=== PATIENT | male | born 1945 | race Caucasian/White ===

== ENCOUNTER 2016-08-13 08:29 | Emergency (ER) | payer MEDICARE, MEDICAID ==
[~2016-08-13] VITALS: Ht 185.4 cm; Wt 117.9 kg
[~2016-08-13 08:29] MED LIST: AMOX-263 PO; ASPI-264 PO; ATOR40TA52 PO; CAR125T PO; CLOP75TA28 PO; DOC100C PO; DOCU100T15 PO; DONETAB5 PO; FURO40TA PO; INSU70IN9 SC; INSUINJ IJ; ISOS30TA4 PO; KLOR CON PO; LINA5TAB PO; LISI10TA6 PO; NITR0.4S31 SL; PANTOPRAZOLE PO; TRAM50TA2 PO; [UNRECOGNIZED DRUG - CODE] PO
[2016-08-13 09:46] LABS: Basophils # (auto) 0 uL; Basophils % (auto) 0.4 % (0.0-2.0); CONDITION Y; Eosinophils # (auto) 0.1 uL; Eosinophils % (auto) 1.6 % (0.0-7.0); Hematocrit 40.6 % (41.0-53.0); Hemoglobin 14.4 g/dL (13.5-17.5); Lymphocytes # (auto) 0.9 uL; Lymphocytes % (auto) 14.3 % (10.0-50.0); Mean Corpuscular Hemoglobin 33.2 pg (28.0-32.0); Mean Corpuscular Hgb Conc. 35.4 g/dL (32.0-36.0); Mean Corpuscular Volume 93.8 fL (80.0-100.0); Mean Platelet Volume 7.4 fL (7.4-10.4); Monocytes # (auto) 0.4 uL; Monocytes % (auto) 6.6 % (0.0-12.0); Neutrophils # (auto) 4.6 uL; Neutrophils % (auto) 77.1 % (37.0-80.0); Platelet Count (auto) 245 10^3/uL (140-450); Red Cell Distribution Width 14.6 % (11.6-16.0); White Blood Cell 5.9 10^3/uL (4.4-10.8)
[2016-08-13 10:06] LABS: Albumin 3.4 g/dL (3.4-5.0); BUN/Creatinine Ratio 6.4; Bilirubin, Total 0.6 mg/dL (0.2-1.0); Calcium 8.4 mg/dL (8.5-10.1); Potassium 3.9 mmol/L (3.5-5.1); Total Protein 6.9 g/dL (6.4-8.2)
[2016-08-13] MEDS ORDERED: KETOROLAC TROMETH 60MG/2ML VIAL IM ONE (10:30)
[2016-08-13] MEDS ORDERED: SODIUM CHLORIDE 0.9% 1,000 ML IV ONE (10:53)
[2016-08-13] MEDS ORDERED: InsuLIN REG 1unit/0.01ml Soln (100units/ml) IV ONE (11:00)
[2016-08-13 14:31] VITALS: BP 163/94
== END 2016-08-13 14:43 | disposition home or self-care (01) ==
LOC: EDBD 08:29 → EDSEX 08:29 → ER 08:34
DX: M54.5 Low back pain (principal); G89.29 Other chronic pain; E11.65 Type 2 diabetes mellitus with hyperglycemia; I11.0 Hypertensive heart disease with heart failure; I50.9 Heart failure, unspecified; I25.10 Atherosclerotic heart disease of native coronary artery without angina pectoris; F03.90 Unspecified dementia, unspecified severity, without behavioral disturbance, psychotic disturbance, mood disturbance, and anxiety; Z88.8 Allergy status to other drugs, medicaments and biological substances; W06.XXXA Fall from bed, initial encounter; Y93.89 Activity, other specified; Y99.8 Other external cause status; Y92.89 Other specified places as the place of occurrence of the external cause
CPT/HCPCS: 36415; 71020; 72110; 72192; 80053; 82962; 84484; 85025; 93005; 96361; 96372; 96374; 99285; J1815; J1885

== ENCOUNTER 2016-12-06 15:48 | Emergency (ER) | payer MEDICARE, MEDICAID ==
[~2016-12-06] VITALS: Ht 188 cm; Wt 108.9 kg
[2016-12-06] MEDS ORDERED: HYDROcodone-ACET 10/325MG TAB PO ONE (17:30)
[2016-12-06 18:47] VITALS: BP 136/70
== END 2016-12-06 19:05 | disposition home or self-care (01) ==
LOC: EDBD 15:48 → ER 15:54
DX: S93.401A Sprain of unspecified ligament of right ankle, initial encounter (principal); I11.9 Hypertensive heart disease without heart failure; I50.9 Heart failure, unspecified; K21.9 Gastro-esophageal reflux disease without esophagitis; E11.9 Type 2 diabetes mellitus without complications; Z86.73 Personal history of transient ischemic attack (TIA), and cerebral infarction without residual deficits; Z95.0 Presence of cardiac pacemaker; Z79.899 Other long term (current) drug therapy; Z88.8 Allergy status to other drugs, medicaments and biological substances; Z79.4 Long term (current) use of insulin; W06.XXXA Fall from bed, initial encounter; Y93.89 Activity, other specified; Y99.8 Other external cause status; Y92.89 Other specified places as the place of occurrence of the external cause
CPT/HCPCS: 29125; 73590; 73600

== ENCOUNTER 2017-06-06 16:27 | Emergency (ER) | payer MEDICARE, MEDICAID ==
[~2017-06-06] VITALS: Ht 177.8 cm; Wt 113.4 kg
[2017-06-06 16:32] VITALS: BP 157/78
== END 2017-06-06 20:43 | disposition home or self-care (01) ==
LOC: ER 16:27 → EDUNIT# 16:27 → EDBD 16:27 → ER 20:43
DX: S83.92XA Sprain of unspecified site of left knee, initial encounter (principal); M25.462 Effusion, left knee; I25.10 Atherosclerotic heart disease of native coronary artery without angina pectoris; I50.9 Heart failure, unspecified; E11.9 Type 2 diabetes mellitus without complications; K21.9 Gastro-esophageal reflux disease without esophagitis; I10 Essential (primary) hypertension; Z90.49 Acquired absence of other specified parts of digestive tract; Z88.8 Allergy status to other drugs, medicaments and biological substances; Z79.899 Other long term (current) drug therapy; Z79.4 Long term (current) use of insulin; Z95.0 Presence of cardiac pacemaker; W18.39XA Other fall on same level, initial encounter; Y93.89 Activity, other specified; Y92.89 Other specified places as the place of occurrence of the external cause; Y99.8 Other external cause status
CPT/HCPCS: 73560; 73610